=== PATIENT | female | born 1980 | race Two or more races ===

== ENCOUNTER 2018-06-02 20:03 | Emergency (ER) | payer MEDICAID ==
[~2018-06-02] VITALS: Ht 162.6 cm; Wt 68.2 kg
[2018-06-02] MEDS ORDERED: DIPH,PERTUSS(ACELL),TET VAC/PF 0.5 ML IM-VACC ONE ×2 (20:23→20:30)
[2018-06-02] MEDS ORDERED: L.E.T SOLUTION TP ONE ×2 (20:37→21:00)
[2018-06-02] MEDS ORDERED: LIDOCAINE 1%-EPI 1:100K, 20ML SQ ONE (21:00)
[2018-06-02] MEDS ORDERED: BACITRACIN ZINC OINT 500U/GM, 0.9 GM ONE (21:00)
[2018-06-02] MEDS ORDERED: LIDOCAINE-MPF 1%, 5ML INFIL ONE (21:00)
[2018-06-02] MEDS ORDERED: LIDOCAINE 1%-EPI 1:100K, 30ML ONE (21:01)
[2018-06-02 21:49] VITALS: BP 126/82
== END 2018-06-02 21:52 | disposition home or self-care (01) ==
LOC: ED 21:15
DX: S91.311A Laceration without foreign body, right foot, initial encounter (principal); F17.210 Nicotine dependence, cigarettes, uncomplicated; W22.8XXA Striking against or struck by other objects, initial encounter; Y93.89 Activity, other specified; Y92.009 Unspecified place in unspecified non-institutional (private) residence as the place of occurrence of the external cause; Y99.8 Other external cause status
CPT/HCPCS: 12001; 90471; 90715; 99283

== ENCOUNTER 2019-01-20 21:28 | Emergency (ER) | payer MEDICAID ==
[~2019-01-20] VITALS: Ht 170.2 cm; Wt 66.0 kg
--- NOTE | 2019-01-20 21:56 | NUR ---
Pt ambulated to room with EDT.
--- NOTE | 2019-01-20 22:42 | NUR ---
Urine sample collected and sent to lab.
[2019-01-20 22:53] LABS: MICROSCOPIC NOT IND
[2019-01-20 22:56] LABS: CULTURE INDICATED? NO
--- NOTE | 2019-01-20 23:34 | NUR ---
Yocasta ORTIZ, at bedside to discuss ED findings and d/c information.
[2019-01-20 23:38] VITALS: BP 128/78
--- NOTE | 2019-01-20 23:38 | NUR ---
Patient/Caregiver given discharge instructions and they have confirmed that they understand the instructions. Patient ambulatory with steady gait.
== END 2019-01-20 23:40 | disposition home or self-care (01) ==
LOC: ED 23:33
DX: S29.011A Strain of muscle and tendon of front wall of thorax, initial encounter (principal); F17.210 Nicotine dependence, cigarettes, uncomplicated; Y08.89XA Assault by other specified means, initial encounter; Y93.9 Activity, unspecified; Y92.009 Unspecified place in unspecified non-institutional (private) residence as the place of occurrence of the external cause; Y99.8 Other external cause status
CPT/HCPCS: 81003; 99284